=== PATIENT | female | born 1960 | race Caucasian/White ===

== ENCOUNTER 2023-03-17 01:16 | Emergency (ER) | payer MEDICAID ==
[~2023-03-17] VITALS: Ht 162.6 cm; Wt 120.0 kg
[2023-03-17 01:30] VITALS: TEMP 98.1; O2SAT 99
[2023-03-17] MEDS ORDERED: KETOROLAC 60MG/2ML VIAL IM ONE (03:30)
[2023-03-17 03:46] VITALS: BP 140/78; PULSE 82; RESP 20
== END 2023-03-17 05:43 | disposition home or self-care (01) ==
LOC: ER 01:20
DX: S52.592A Other fractures of lower end of left radius, initial encounter for closed fracture (principal); Z85.3 Personal history of malignant neoplasm of breast; V89.2XXA Person injured in unspecified motor-vehicle accident, traffic, initial encounter; Y93.89 Activity, other specified; Y92.89 Other specified places as the place of occurrence of the external cause; Y99.8 Other external cause status
CPT/HCPCS: 99283; 73100; 29125; 96372; J1885